=== PATIENT | male | born 1955 | race Caucasian/White ===

== ENCOUNTER 2022-01-05 13:56 | Observation (INO) | payer OTHER ==
[2021-12-31 13:34] LABS: BASOPHILS # (AUTO) 0.1 (0.0-0.1); BASOPHILS % 0.8 % (0.0-1.0); EOSINOPHILS # (AUTO) 0.2 (0.0-0.4); EOSINOPHILS % 1.9 % (0.0-6.0); HEMATOCRIT 40.6 % (38.2-49.6); HEMOGLOBIN 13.8 g/dL (14.0-18.0); LYMPHOCYTES # (AUTO) 2.9 (1.0-3.2); LYMPHOCYTES % 26.4 % (18.0-39.1); MEAN CORPUSCULAR HEMOGLOBIN 31.9 pg (28-32); MEAN CORPUSCULAR VOLUME 93.8 fL (81-99); MONOCYTES # (AUTO) 0.6 (0.2-0.8); MONOCYTES % 5.6 % (4.4-11.3); NEUTROPHILS # (AUTO) 7.2 (2.1-6.9); PLATELET COUNT 348 x10e3/uL (140-360); RED BLOOD COUNT 4.33 x10e6/uL (4.3-5.7); RED CELL DISTRIBUTION WIDTH 11.9 % (11.7-14.4)
[2021-12-31 14:05] LABS: ALBUMIN/GLOBULIN RATIO 1.1 (0.8-2.0); ANION GAP 16.5 mmol/L (8-16); CALCIUM 9.5 mg/dL (8.4-10.2); CHOL/HDL RATIO 3.8 (3.9-4.7); CREATININE, SERUM 0.82 mg/dL (0.72-1.25); POTASSIUM 4.5 mmol/L (3.5-5.1)
[2022-01-05] VITALS (13 sets, daily range): BP systolic 101–130; BP diastolic 64–82
[~2022-01-05] VITALS: Ht 170.2 cm; Wt 68.2 kg
[~2022-01-05 13:56] MED LIST: LIDOCAINE HCL 1% 2 ML AMP ONE
[2022-01-05] MEDS ORDERED: ALPRAZOLAM 0.5 MG TAB ONE (16:05)
[2022-01-05] MEDS ORDERED: DIPHENHYDRAMINE HCL 25 MG CAP ONE (16:06)
[2022-01-05] MEDS ORDERED: SODIUM CHLORIDE 0.9% 1000ML 1,000 ML ONE ×2 (16:06→21:56)
[2022-01-05] MEDS ORDERED: IOPAMIDOL 370 MG/ML 100 ML INFUS..BTL INJ ONE (16:51)
[2022-01-05] MEDS ORDERED: MIDAZOLAM HCL 2 MG/2 ML VIAL ONE ×2 (16:51→17:12)
[2022-01-05] MEDS ORDERED: FENTANYL CITRATE/PF 100MCG/2 ML INJ ONE (16:51)
[2022-01-05] MEDS ORDERED: HEPARIN SOD/SOD CHLORIDE 2,000 ML ONE (16:51)
[2022-01-05] MEDS ORDERED: Morphine 4mg INJECTION 4 MG/ML INJ IV PRN ×2 (17:15→22:00)
[2022-01-05] MEDS ORDERED: ACETAMINOPHEN 325 MG TAB PO PRN ×2 (17:15→22:00)
[2022-01-05] MEDS ORDERED: Morphine 2mg Syringe 2 MG/ML SYR IV PRN ×2 (17:15→22:00)
[2022-01-05] MEDS ORDERED: SODIUM CHLORIDE 0.9% 1000ML 1,000 ML IV SCH ×2 (17:15→22:00)
[2022-01-05] MEDS ORDERED: ONDANSETRON HCL INJ 2MG/ML 2ML 2 MG/ML VIAL IV PRN ×2 (17:15→22:00)
[2022-01-05] MEDS ORDERED: ZOLPIDEM TARTRATE 5 MG TAB PO PRN ×2 (21:00→22:00)
[2022-01-06] MEDS ORDERED: AMOXICILLIN500 MG PO (00:30)
[2022-01-06] MEDS ORDERED: WELLBUTRIN XL150 MG PO (00:30)
[2022-01-06] MEDS ORDERED: IBUPROFEN600 MG PO (00:30)
[2022-01-06] MEDS ORDERED: SYMBICORT 16010.2 GM INH (00:30)
[2022-01-06 00:36] VITALS: BP 130/74
[2022-01-06 05:19] VITALS: BP 127/78
[2022-01-06 07:48] VITALS: BP 140/84
[2022-01-06 08:27] VITALS: BP 140/84
== END 2022-01-06 10:20 | disposition home or self-care (01) ==
LOC: CATH LAB 13:56 → UNDOADMIN 19:15 → MED/SURG3 19:15
PROVIDERS: ADMIT Internal Medicine; ATTEND Internal Medicine
DX: I25.119 Atherosclerotic heart disease of native coronary artery with unspecified angina pectoris (principal); I10 Essential (primary) hypertension; R94.39 Abnormal result of other cardiovascular function study
CPT/HCPCS: 0223U; 36415; 80053; 80061; 83880; 85025; 93454; 93458; 99152; C1887; C1894; G0378; J2001; J2250; J3010; J7030; Q9967

== ENCOUNTER → 2022-06-29 | Day surgery (SDC) | payer OTHER ==
[~2022-06-29] MED LIST changes: +AMOXICILLIN500 MG PO; +ASPIRIN81 MG PO; +CRESTOR10 MG PO; +ETOMIDATE 2 MG/ML 10 ML INJ IV ONE; +FENTANYL CITRATE/PF 100MCG/2 ML INJ ONE; +IBUPROFEN600 MG PO; +LIDOCAINE 2%/ EPINEPHRINE 20ML MDV ONE; -LIDOCAINE HCL 1% 2 ML AMP ONE; +LIDOCAINE HCL 2% LOCAL INJ 5 ML SDV VIAL INJ ONE; +MIDAZOLAM HCL 2 MG/2 ML VIAL ONE; +ONDANSETRON HCL INJ 2MG/ML 2ML 2 MG/ML VIAL ONE; +POVIDONE IODINE 0.05% 0.05 % ML PO ONE; +PROPOFOL IV EMULSION 10 MG/ML 20 ML VIAL ONE; +SYMBICORT 16010.2 GM INH; +WELLBUTRIN XL150 MG PO; +ZYRTEC10 M3
[2022-06-29 13:15] VITALS: BP 128/82
== END | disposition home or self-care (01) ==
LOC: OR 09:35
PROVIDERS: ATTEND Ophthalmology
DX: H02.834 Dermatochalasis of left upper eyelid (principal); H02.831 Dermatochalasis of right upper eyelid; J44.9 Chronic obstructive pulmonary disease, unspecified; E78.5 Hyperlipidemia, unspecified; R01.1 Cardiac murmur, unspecified; K21.9 Gastro-esophageal reflux disease without esophagitis; Z79.82 Long term (current) use of aspirin; Z79.899 Other long term (current) drug therapy
CPT/HCPCS: J2001; J2250; J2405